=== PATIENT | female | born 1960 | race Caucasian/White ===

== ENCOUNTER 2018-11-12 10:23 | Emergency (ER) | payer MEDICARE, MEDICAID ==
[~2018-11-12] VITALS: Ht 175.3 cm; Wt 99.3 kg
[~2018-11-12 10:23] MED LIST: AMIT10TA6 PO; FROV2.5T6 PO; GUAI120015 PO; METF500T PO; NAPR-56 PO; PHEN-786 PO; PHEN-824 PO; PRAV10TA38 PO
[2018-11-12 10:26] VITALS: BP 136/82
[2018-11-12] MEDS ORDERED: BENZ-38 PO (10:40)
[2018-11-12] MEDS ORDERED: DOXY100C43 PO (10:40)
== END 2018-11-12 11:01 | disposition home or self-care (01) ==
LOC: ER 10:24
DX: J40 Bronchitis, not specified as acute or chronic (principal); E11.9 Type 2 diabetes mellitus without complications; Z56.0 Unemployment, unspecified; Z88.1 Allergy status to other antibiotic agents; Z79.899 Other long term (current) drug therapy
CPT/HCPCS: 99283

== ENCOUNTER 2019-03-08 17:08 | Emergency (ER) | payer MEDICARE, MEDICAID ==
[2019-03-08 18:14] LABS: CLARITY,URINE TURBID (Clear); COLOR,URINE AMBER (Yellow); GLUCOSE, URINE NEGATIVE (Neg); KETONES,URINE TRACE mg/dl (Neg); LEUKOCYTE ESTERASE ,URINE SMALL (Neg); NITRITES, URINE POSITIVE (Neg); OCCULT BLOOD,URINE LARGE (Neg); PH,URINE 5.5 (4.8-8.0); PROTEIN,URINE >=300 mg/dl (Neg)
[2019-03-08 18:15] LABS: UA COLLECTION TYPE CLN CATCH MIDSTREAM
[2019-03-08 18:16] LABS: SQUAMOUS EPITHELIAL CELL,UR MANY /LPF (FEW)
[2019-03-08 18:17] LABS: BACTERIA,URINE FEW /HPF (Neg); RBC,URINE TNTC /HPF (0-2); WBC,URINE TNTC /HPF (0-4)
[2019-03-08 18:18] LABS: MUCUS STRANDS FEW /LPF (Neg)
[2019-03-08 18:19] LABS: CAL OXALATE CRYSTALS 1+ /HPF (NEGATIVE)
[2019-03-08 18:20] LABS: TRANSITIONAL EPI CELLS,URINE MODERATE /HPF
[2019-03-08] MEDS ORDERED: CEPH-572 PO (18:21)
[2019-03-08 18:34] VITALS: BP 135/86
== END 2019-03-08 18:36 | disposition home or self-care (01) ==
LOC: ER 17:08
DX: N39.0 Urinary tract infection, site not specified (principal); E11.9 Type 2 diabetes mellitus without complications; Z88.1 Allergy status to other antibiotic agents; Z79.84 Long term (current) use of oral hypoglycemic drugs; Z79.899 Other long term (current) drug therapy; Z56.0 Unemployment, unspecified
CPT/HCPCS: 81001; 99283

== ENCOUNTER 2019-07-29 17:43 | Emergency (ER) | payer MEDICARE, MEDICAID ==
[~2019-07-29] VITALS: Ht 175.3 cm; Wt 81.7 kg
[2019-07-29 17:45] VITALS: BP 138/83
[2019-07-29 18:12] LABS: CLARITY,URINE TURBID (Clear); COLOR,URINE YELLOW (Yellow); GLUCOSE, URINE NEGATIVE (Neg); KETONES,URINE NEGATIVE (Neg); LEUKOCYTE ESTERASE ,URINE LARGE (Neg); NITRITES, URINE POSITIVE (Neg); OCCULT BLOOD,URINE MODERATE (Neg); PH,URINE 6.5 (4.8-8.0); PROTEIN,URINE 30 mg/dl (Neg)
[2019-07-29 18:14] LABS: UA COLLECTION TYPE CLN CATCH MIDSTREAM
[2019-07-29 18:18] LABS: WBC,URINE TNTC /HPF (0-4)
[2019-07-29 18:19] LABS: BACTERIA,URINE 4+ /HPF (Neg)
[2019-07-29 18:20] LABS: MUCUS STRANDS NONE SEEN /LPF (Neg); SQUAMOUS EPITHELIAL CELL,UR FEW /LPF (FEW)
[2019-07-29] MEDS ORDERED: PHEN-716 PO (18:44)
[2019-07-29] MEDS ORDERED: NITR100C6 PO (18:44)
== END 2019-07-29 18:54 | disposition home or self-care (01) ==
LOC: ER 17:44
DX: N39.0 Urinary tract infection, site not specified (principal); E11.9 Type 2 diabetes mellitus without complications; F32.9 Major depressive disorder, single episode, unspecified; Z56.0 Unemployment, unspecified; Z88.1 Allergy status to other antibiotic agents; Z79.899 Other long term (current) drug therapy
CPT/HCPCS: 81001; 87077; 87088; 87186; 99283

== ENCOUNTER 2019-11-23 20:20 | Emergency (ER) | payer MEDICARE, MEDICAID ==
[~2019-11-23] VITALS: Ht 175.3 cm; Wt 90.0 kg
[~2019-11-23 20:20] MED LIST changes: +NITR100C6 PO; +PHEN-716 PO
[2019-11-23 21:13] LABS: CLARITY,URINE CLOUDY (Clear); COLOR,URINE YELLOW (Yellow); GLUCOSE, URINE >=1000 mg/dl (Neg); KETONES,URINE NEGATIVE (Neg); LEUKOCYTE ESTERASE ,URINE MODERATE (Neg); NITRITES, URINE POSITIVE (Neg); OCCULT BLOOD,URINE SMALL (Neg); PROTEIN,URINE 30 mg/dl (Neg); UROBILINOGEN,URINE 0.2 E.U/dL (0.2-1.0)
[2019-11-23] MEDS ORDERED: acetaminophen 325mg tablet PO STA (21:16)
[2019-11-23 21:18] LABS: UA COLLECTION TYPE CLN CATCH MIDSTREAM
[2019-11-23 21:21] LABS: BACTERIA,URINE 2+ /HPF (Neg); RBC,URINE 0-2 /HPF (0-2); SQUAMOUS EPITHELIAL CELL,UR MODERATE /LPF (FEW); WBC,URINE 50-100 /HPF (0-4)
[2019-11-23 21:56] LABS: BASOPHILS % (AUTO) 0.3 % (0-1); EOSINOPHILS % (AUTO) 0.1 % (0-6); HEMATOCRIT 39.7 % (35.0-45.0); HEMOGLOBIN 13.2 g/dl (12.0-16.0); LYMPHOCYTES # (AUTO) 0.8 X10'3 (1.1-4.8); MEAN CORPUSCULAR HEMOGLOBIN 29.8 PG (27.0-31.0); MEAN CORPUSCULAR HGB CONC 33.3 g/dL (33.0-36.5); MEAN CORPUSCULAR VOLUME 89.6 FL (78-98); MEAN PLATELET VOLUME 7.1 FL (7.4-10.4); MONOCYTES # (AUTO) 1.1 X10'3 (0-0.9); MONOCYTES % (AUTO) 8.6 % (2-12); NEUTROPHILS # (AUTO) 11.2 X10'3 (1.8-7.7); PLATELET COUNT 213 X10'3 (140-440); RED BLOOD COUNT 4.43 X10'6 (4.20-5.60); RED CELL DISTRIBUTION WIDTH 13.7 % (11.5-14.5); WHITE BLOOD COUNT 13.2 X10'3 (4.5-11.0)
[2019-11-23] MEDS ORDERED: CefTRIAXone 1000mg IM Kit (w/lidocaine diluent) IM ONE (22:00)
[2019-11-23 22:05] LABS: ALANINE AMINOTRANSFERASE 17 U/L (12-78); ALBUMIN 3.4 G/DL (3.4-5.0); ALKALINE PHOSPHATASE 93 IU/L (46-116); ANION GAP 7 (8-16); ASPARTATE AMINO TRANSFERASE 14 U/L (10-37); BLOOD UREA NITROGEN 20 MG/DL (7-18); BUN/CREATININE RATIO 20.4 (6.6-38.0); CALCIUM 8.3 MG/DL (8.5-10.1); CHLORIDE 103 MMOL/L (99-107); CREATININE 0.98 MG/DL (0.40-0.90); GLUCOSE 264 MG/DL (70-104); POTASSIUM 3.3 MMOL/L (3.5-5.1); SODIUM 136 MMOL/L (135-145); TOTAL CARBON DIOXIDE 26.2 MMOL/L (24-32); TOTAL PROTEIN 6.9 G/DL (6.4-8.2); eGFR 58 ML/MIN
[2019-11-23] MEDS ORDERED: CEPH-572 PO (22:16)
[2019-11-23 22:33] VITALS: BP 110/58
== END 2019-11-23 22:35 | disposition home or self-care (01) ==
LOC: ER 20:20
DX: N12 Tubulo-interstitial nephritis, not specified as acute or chronic (principal); F32.9 Major depressive disorder, single episode, unspecified; E11.9 Type 2 diabetes mellitus without complications; Z56.0 Unemployment, unspecified; Z88.1 Allergy status to other antibiotic agents; Z79.84 Long term (current) use of oral hypoglycemic drugs; Z79.899 Other long term (current) drug therapy
CPT/HCPCS: 36415; 80053; 81001; 84145; 85025; 93005; 96372; 99284; J0696

== ENCOUNTER 2021-01-29 09:42 | Emergency (ER) | payer MEDICARE, MEDICAID ==
[~2021-01-29] VITALS: Ht 175.3 cm; Wt 94.5 kg
[~2021-01-29 09:42] MED LIST changes: +CEPH-572 PO
[2021-01-29 09:52] VITALS: BP 111/78
[2021-01-29 10:17] LABS: URINE HCG NEGATIVE (NEG)
[2021-01-29 10:22] LABS: CLARITY,URINE CLOUDY (Clear); COLOR,URINE YELLOW (Yellow); GLUCOSE, URINE 100 mg/dl (Neg); KETONES,URINE NEGATIVE (Neg); LEUKOCYTE ESTERASE ,URINE LARGE (Neg); NITRITES, URINE POSITIVE (Neg); OCCULT BLOOD,URINE MODERATE (Neg); PH,URINE 5.5 (4.8-8.0); PROTEIN,URINE 30 mg/dl (Neg); UROBILINOGEN,URINE 0.2 E.U/dL (0.2-1.0)
[2021-01-29 10:25] LABS: UA COLLECTION TYPE CLN CATCH MIDSTREAM
[2021-01-29 10:32] LABS: BACTERIA,URINE 3+ /HPF (Neg); SQUAMOUS EPITHELIAL CELL,UR MODERATE /LPF (FEW)
[2021-01-29 10:33] LABS: RBC,URINE 20-50 /HPF (0-2); WBC CLUMPS,URINE MANY /HPF (NEGATIVE); WBC,URINE TNTC /HPF (0-4)
[2021-01-29] MEDS ORDERED: PHEN-824 PO (10:45)
[2021-01-29] MEDS ORDERED: CEPH250T PO (10:45)
== END 2021-01-29 11:19 | disposition home or self-care (01) ==
LOC: ER 09:44
DX: N39.0 Urinary tract infection, site not specified (principal); E11.9 Type 2 diabetes mellitus without complications; F32.9 Major depressive disorder, single episode, unspecified; Z56.0 Unemployment, unspecified; Z88.1 Allergy status to other antibiotic agents; Z79.84 Long term (current) use of oral hypoglycemic drugs; Z79.899 Other long term (current) drug therapy
CPT/HCPCS: 81001; 81025; 87077; 87088; 87186; 99283

== ENCOUNTER 2021-06-21 11:48 | Emergency (ER) | payer MEDICARE, MEDICAID ==
[~2021-06-21] VITALS: Ht 172.7 cm; Wt 96.4 kg
[2021-06-21 12:05] VITALS: BP 117/76
[2021-06-21] MEDS ORDERED: CEPH250T PO (12:19)
[2021-06-21 12:38] LABS: CLARITY,URINE CLOUDY (Clear); COLOR,URINE YELLOW (Yellow); UA COLLECTION TYPE CLN CATCH MIDSTREAM
[2021-06-21 12:39] LABS: GLUCOSE, URINE 500 mg/dl (Neg); KETONES,URINE NEGATIVE (Neg); LEUKOCYTE ESTERASE ,URINE MODERATE (Neg); NITRITES, URINE POSITIVE (Neg); OCCULT BLOOD,URINE Large (Neg); PROTEIN,URINE NEGATIVE (Neg); UROBILINOGEN,URINE 0.2 E.U/dL (0.2-1.0)
[2021-06-21 12:51] LABS: BACTERIA,URINE 3+ /HPF (Neg); WBC,URINE TNTC /HPF (0-4)
[2021-06-21 12:52] LABS: SQUAMOUS EPITHELIAL CELL,UR MODERATE /LPF (FEW)
== END 2021-06-21 12:42 | disposition home or self-care (01) ==
LOC: ER 11:49
DX: N30.90 Cystitis, unspecified without hematuria (principal); E11.9 Type 2 diabetes mellitus without complications; Z87.440 Personal history of urinary (tract) infections; Z56.0 Unemployment, unspecified; Z88.1 Allergy status to other antibiotic agents; Z79.2 Long term (current) use of antibiotics; Z79.899 Other long term (current) drug therapy
CPT/HCPCS: 81001; 87077; 87088; 87186; 99283

== ENCOUNTER 2021-08-18 10:26 | Emergency (ER) | payer MEDICARE, MEDICAID ==
[~2021-08-18] VITALS: Ht 175.3 cm; Wt 90.9 kg
[2021-08-18 10:32] VITALS: BP 115/74
[2021-08-18 10:50] LABS: CLARITY,URINE TURBID (Clear); GLUCOSE, URINE NEGATIVE (Neg); KETONES,URINE NEGATIVE (Neg); LEUKOCYTE ESTERASE ,URINE LARGE (Neg); NITRITES, URINE POSITIVE (Neg); OCCULT BLOOD,URINE TRACE-INTACT (Neg); PROTEIN,URINE NEGATIVE (Neg); UROBILINOGEN,URINE 0.2 E.U/dL (0.2-1.0)
[2021-08-18 10:51] LABS: COLOR,URINE STRAW (Yellow); UA COLLECTION TYPE CLN CATCH MIDSTREAM
[2021-08-18 11:48] LABS: SQUAMOUS EPITHELIAL CELL,UR MANY /LPF (FEW)
[2021-08-18 11:50] LABS: BACTERIA,URINE 4+ /HPF (Neg); RBC,URINE 0-2 /HPF (0-2); WBC,URINE TNTC /HPF (0-4)
[2021-08-18] MEDS ORDERED: SULF1TAB49 PO (13:17)
== END 2021-08-19 04:58 | disposition home or self-care (01) ==
LOC: ER 10:27
DX: N39.0 Urinary tract infection, site not specified (principal); E11.9 Type 2 diabetes mellitus without complications; F32.9 Major depressive disorder, single episode, unspecified; Z87.440 Personal history of urinary (tract) infections; Z56.0 Unemployment, unspecified; Z79.2 Long term (current) use of antibiotics; Z79.899 Other long term (current) drug therapy; Z88.1 Allergy status to other antibiotic agents; Z86.19 Personal history of other infectious and parasitic diseases
CPT/HCPCS: 81001; 99283

== ENCOUNTER 2022-04-02 14:05 | Emergency (ER) | payer MEDICARE, MEDICAID ==
[~2022-04-02] VITALS: Ht 175.3 cm; Wt 102.5 kg
[2022-04-02 14:19] VITALS: BP 112/72
[2022-04-02 15:00] LABS: UA COLLECTION TYPE NON-SPECIFIED
[2022-04-02 15:01] LABS: CLARITY,URINE SLIGHTLY CLOUDY (Clear); COLOR,URINE YELLOW (Yellow); GLUCOSE, URINE >=1000 mg/dl (Neg); KETONES,URINE NEGATIVE (Neg); LEUKOCYTE ESTERASE ,URINE TRACE (Neg); NITRITES, URINE NEGATIVE (Neg); OCCULT BLOOD,URINE TRACE-INTACT (Neg); PROTEIN,URINE NEGATIVE (Neg)
[2022-04-02 15:10] LABS: BACTERIA,URINE FEW /HPF (Neg); SQUAMOUS EPITHELIAL CELL,UR FEW /LPF (FEW)
[2022-04-02] MEDS ORDERED: NITR100C6 PO (15:18)
[2022-04-02] MEDS ORDERED: PHEN-824 PO (15:18)
== END 2022-04-02 15:26 | disposition home or self-care (01) ==
LOC: ER 14:06
DX: N39.0 Urinary tract infection, site not specified (principal); E11.9 Type 2 diabetes mellitus without complications; F32.A Depression, unspecified; Z56.0 Unemployment, unspecified; Z88.1 Allergy status to other antibiotic agents; Z79.899 Other long term (current) drug therapy; Z79.2 Long term (current) use of antibiotics
CPT/HCPCS: 81001; 87077; 87088; 87186; 99283

== ENCOUNTER 2022-08-12 18:38 | Emergency (ER) | payer MEDICARE, MEDICAID ==
[~2022-08-12] VITALS: Ht 175.3 cm; Wt 75.0 kg
[2022-08-12 19:49] VITALS: BP 126/75
[2022-08-12] MEDS ORDERED: bacitracin 15gm ointment TP ONE (20:55)
== END 2022-08-12 21:06 | disposition home or self-care (01) ==
LOC: ER 18:38
DX: L02.211 Cutaneous abscess of abdominal wall (principal); L73.9 Follicular disorder, unspecified
CPT/HCPCS: 56405; 99284

== ENCOUNTER 2022-10-28 16:08 | Emergency (ER) | payer MEDICARE, MEDICAID ==
[~2022-10-28] VITALS: Ht 175.3 cm; Wt 100.0 kg
[2022-10-28 16:13] VITALS: BP 155/77
[2022-10-28] MEDS ORDERED: miconazole nitrate 28.35 gm derm cream TP STA (16:56)
[2022-10-28] MEDS ORDERED: fluconazole 150mg tablet PO ONE (17:00)
[2022-10-28] MEDS ORDERED: MICO45CR73 VG (17:02)
[2022-10-28 17:11] LABS: CLARITY,URINE SLIGHTLY CLOUDY (Clear); COLOR,URINE YELLOW (Yellow); GLUCOSE, URINE >=1000 mg/dl (Neg); KETONES,URINE NEGATIVE (Neg); LEUKOCYTE ESTERASE ,URINE NEGATIVE (Neg); NITRITES, URINE NEGATIVE (Neg); OCCULT BLOOD,URINE NEGATIVE (Neg); PROTEIN,URINE NEGATIVE (Neg); UROBILINOGEN,URINE 0.2 E.U/dL (0.2-1.0)
[2022-10-28 17:37] LABS: UA COLLECTION TYPE CLN CATCH MIDSTREAM
[2022-10-28 17:38] LABS: RBC,URINE 0-2 /HPF (0-2); WBC,URINE 0-4 /HPF (0-4)
[2022-10-28 17:39] LABS: BACTERIA,URINE 1+ /HPF (Neg); MUCUS STRANDS FEW /LPF (Neg); SQUAMOUS EPITHELIAL CELL,UR MANY /LPF (FEW)
== END 2022-10-28 17:46 | disposition home or self-care (01) ==
LOC: ER 16:09
DX: B37.49 Other urogenital candidiasis (principal); F32.A Depression, unspecified; E11.9 Type 2 diabetes mellitus without complications; Z56.0 Unemployment, unspecified; Z88.1 Allergy status to other antibiotic agents; Z79.899 Other long term (current) drug therapy; Z79.1 Long term (current) use of non-steroidal anti-inflammatories (NSAID); Z79.2 Long term (current) use of antibiotics
CPT/HCPCS: 81001; 99283

== ENCOUNTER 2023-03-11 17:10 | Emergency (ER) | payer MEDICARE, MEDICAID ==
[~2023-03-11] VITALS: Ht 175.3 cm; Wt 84.5 kg
[~2023-03-11 17:10] MED LIST changes: +MICO45CR73 VG
[2023-03-11 18:07] VITALS: BP 119/82
[2023-03-11] MEDS ORDERED: fluconazole 100mg tablet PO ONE (19:45)
[2023-03-11] MEDS ORDERED: MICO45CR73 VG (19:47)
[2023-03-11] MEDS ORDERED: insulin glargine (Lantus) pen - multi-dose SQ ONE ×2 (19:50→19:55)
[2023-03-11] MEDS ORDERED: insulin regular, human 10 units/0.1 ml syringe SQ ONE (19:55)
== END 2023-03-11 20:22 | disposition home or self-care (01) ==
LOC: ER 17:10
DX: B37.31 Acute candidiasis of vulva and vagina (principal); E11.65 Type 2 diabetes mellitus with hyperglycemia; Z88.1 Allergy status to other antibiotic agents; Z88.8 Allergy status to other drugs, medicaments and biological substances; Z79.899 Other long term (current) drug therapy
CPT/HCPCS: 82948; 99284; J1815

== ENCOUNTER 2024-05-03 08:37 | Emergency (ER) | payer MEDICARE, MEDICAID ==
[~2024-05-03] VITALS: Ht 175.3 cm; Wt 61.0 kg
[2024-05-03 08:39] VITALS: TEMP 97.9
[2024-05-03 09:13] LABS: BILIRUBIN,URINE NEGATIVE (Neg); CLARITY,URINE CLOUDY (Clear); COLOR,URINE YELLOW (Yellow); GLUCOSE, URINE NEGATIVE (Neg); KETONES,URINE NEGATIVE (Neg); LEUKOCYTE ESTERASE ,URINE LARGE (Neg); NITRITES, URINE POSITIVE (Neg); OCCULT BLOOD,URINE TRACE-INTACT (Neg); PROTEIN,URINE NEGATIVE (Neg); UROBILINOGEN,URINE 0.2 E.U/dL (0.2-1.0)
[2024-05-03 09:15] LABS: UA COLLECTION TYPE CLN CATCH MIDSTREAM
[2024-05-03 09:18] LABS: BACTERIA,URINE 4+ /HPF (Neg); RBC,URINE 0-2 /HPF (0-2); SQUAMOUS EPITHELIAL CELL,UR FEW /LPF (FEW); WBC,URINE 50-100 /HPF (0-4)
[2024-05-03] MEDS ORDERED: CEPH-585 PO (09:18)
[2024-05-03] MEDS ORDERED: DIF150T PO (09:18)
[2024-05-03 09:28] VITALS: BP 112/74; PULSE 84; RESP 14; O2SAT 99
== END 2024-05-03 09:29 | disposition home or self-care (01) ==
LOC: ER 08:37
DX: N39.0 Urinary tract infection, site not specified (principal); R35.0 Frequency of micturition; E11.9 Type 2 diabetes mellitus without complications; Z88.1 Allergy status to other antibiotic agents
CPT/HCPCS: 81001; 87077; 87088; 87186; 99283